=== PATIENT | male | born 1980 | race Caucasian/White ===

== ENCOUNTER 2019-07-09 08:40 | Emergency (ER) | payer SELFPAY ==
[2019-07-09 08:44] VITALS: BMI 32.1
[2019-07-09 09:00] VITALS: PULSE 70; RESP 16; O2SAT 99
--- NOTE | 2019-07-09 09:01 | W.ED.CHESTPA ---
HPI - Chest Pain General: Chief Complaint: Chest Pain Stated Complaint: cp Time Seen by Provider: 07/09/19 08:53 History of Present Illness: HPI narrative: 38-year-old male presents to the emergency room with complaint of chest pain he states he has had this off and on for the last 6 months to varying degrees is a little worse this morning. 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 He reported some nausea with it this morning as well as some shortness of breath. Over the last 6 months he is noticed that massaging or palpating the chest seems to relieve it as does rest and is exacerbated by activity such as lifting and working. He denies any fever sweats or chills any cough usually is not been short of breath with this with the exception of today's episode. Denies any nausea vomiting or diarrhea the rest of his review of systems is negative. He is not been around anyone who is been ill recently that he is aware of. He is not taken any antacids or PPIs or H2 blockers at home for this. He did get some aspirin at one point and he states he took someone else's hydrocodone tablet yesterday. MD complaint: chest pain Onset (ago): month(s) (6) Timing of current episode: episodic Prior episodes: Yes Onset: during exertion Pain location: left chest Pain radiation: none Severity: mild Quality: sharp Relieving factors: rest and other (Palpation) Exacerbating factors: exertion and movement Associated symptoms: Reports diaphoresis (This morning's episode only) and dyspnea (This morning's episode only); Deny fever(s), leg edema, nausea, palpitations, syncope or vomiting Treatment prior to arrival: aspirin Review of Systems Const: Reports: diaphoresis (This morning's episode only); Denies: fever(s) ENMT: Denies: throat pain, ear or mastoid pain, nasal discharge or nasal congestion Card: Denies: palpitations or syncope Resp: Reports: dyspnea (This morning's episode only) GI: Denies: nausea or vomiting : Denies: flank pain, dysuria, urinary frequency or urinary urgency Skin/Breast: Denies: rash or pruritus PFSH ED PFSH: Social History Smoking and tobacco status: current every day smoker Physical Exam Const: COMMON NORMALS: no acute distress GENERAL APPEARANCE: cooperative and comfortable ORIENTATION/CONSCIOUSNESS: Yes awake, Yes oriented to person, Yes oriented to place and Yes oriented to time HENMT: COMMON NORMALS: normocephalic, atraumatic, hearing grossly normal bilaterally, external ears normal, EAC's normal, TM's normal bilaterally, Normal nasal mucous membranes and turbinates present, moist oral mucous membranes and oropharynx normal HEAD & SCALP: normocephalic and atraumatic NOSE: Normal nasal mucous membranes and turbinates present EXTERNAL EAR: Yes external ears normal EXTERNAL AUDITORY CANAL: EAC's normal TYMPANIC MEMBRANE: TM's normal bilaterally Eye: COMMON NORMALS: Equal, round and reactive pupils present, EOMs intact bilaterally, conjunctivae normal and no scleral icterus CONJUNCTIVA: Yes conjunctivae normal PUPIL: Yes Equal, round and reactive pupils present Neck/C-Spine: COMMON NORMALS: full ROM, no lymphadenopathy, supple and no JVD Lymph: LYMPHATIC: no lymphadenopathy noted and no lymphedema noted Resp: COMMON NORMALS: normal respiratory effort, No retractions, No use of accessory muscles and clear to auscultation bilaterally AUSCULTATION: clear to auscultation bilaterally Cardio: COMMON NORMALS: no JVD, regular rate, regular rhythm and No murmurs present (Cardio) RATE: regular rate RHYTHM: regular rhythm GI: COMMON NORMALS: Soft to palpation and No hepatosplenomegaly present AUSCULTATION: Yes normoactive bowel sounds PALPATION: Yes Soft to palpation, No Tenderness to palpation present (GI), No Guarding due to palpation present (GI) and Yes No hepatosplenomegaly present Extremity: COMMON NORMALS: normal to inspection, capillary refill normal, no clubbing, cyanosis or edema, no calf tenderness and no pedal edema Neuro: SENSORIUM/ORIENTATION: Yes oriented to person, Yes oriented to place and Yes oriented to time Skin: COMMON NORMALS: no rashes or lesions noted GENERAL SKIN EXAM: no rashes or lesions noted Course Vital Signs: Vital signs: Vital Signs Pulse Rate 62 07/09/19 11:35 Respiratory Rate 16 07/09/19 11:35 Blood Pressure 127/75 07/09/19 11:35 Pulse Oximetry 99 07/09/19 11:35 MDM - Chest Pain MDM Narrative: Medical decision making narrative: Patient's troponin is negative EKG is unremarkable we will go ahead and discharge him. set him up to get a graded exercise test as an outpatient additionally start him on omeprazole 20 mg daily Lab Data: Labs: Lab Results 07/09/19 07/09/19 07/09/19 Range/Units 08:58 08:58 08:58 WBC 8.6 (4.0-10.0) 10^3/ uL RBC 4.61 (4.1-5.3) 10^6/u L Hgb 14.2 (11.7-16.6) g/dL Hct 42.6 (42.0-52.0) % MCV 92.4 (80-94) fL MCH 30.8 (28.0-34.0) pg MCHC 33.3 (30.0-36.0) g/dL RDW 12.3 (12.1-15.1) % Plt Count 209 (130-400) 10^3/c mm MPV 9.2 (7.4-10.4) fL Neut % (Auto) 73.0 % Lymph % (Auto) 17.1 % [place] % (Auto) 7.9 % Eos % (Auto) 1.2 % Baso % (Auto) 0.4 % Neut # (Auto) 6.3 (1.8-7.7) 10^3/u L Lymph # (Auto) 1.5 (0.8-4.8) 10^3/u L [place] # (Auto) 0.7 (0.2-0.9) 10^3/u L Eos # (Auto) 0.1 (0.0-0.8) 10^3/u L Baso # (Auto) 0.0 (0.0-0.1) 10^3/u L Nucleated RBC % (a uto) 0 % Nucleated RBCs # 0.0 /100WBC Sodium 136 (136-145) mmol/L Potassium 4.0 (3.5-5.1) mmol/L Chloride 100 (98-107) mmol/L Carbon Dioxide 27 (22-29) mmol/L Anion Gap 13.0 (5-19) BUN 14 (6-20) mg/dL Creatinine 0.7 (0.7-1.2) mg/dL GFR Calculation 126.9 (90-130) mL/min Glucose 93 (65-115) mg/dL Calculated Osmolal ity 278 L (285-295) mOsm/k g Calcium 9.7 (8.5-10.5) mg/dL Total Bilirubin 0.6 (0.15-1.2) mg/dL AST 67 H (0-40) U/L ALT 104 H (0-41) U/L Alkaline Phosphata se 57 (40-130) IU/L Creatine Kinase 129 (39-308) U/L Troponin T Baselin e 6 (0-15) ng/mL Troponin T 120 Min [place] (0-15) ng/mL Delta Troponin T (0-10) ABS# Total Protein 7.9 (6.6-8.7) g/dL Albumin 4.2 (3.5-5.2) g/dL Globulin 3.7 (1.3-4.6) g/dL 07/09/19 Range/Units 10:57 WBC (4.0-10.0) 10^3/ uL RBC (4.1-5.3) 10^6/u L Hgb (11.7-16.6) g/dL Hct (42.0-52.0) % MCV (80-94) fL MCH (28.0-34.0) pg MCHC (30.0-36.0) g/dL RDW (12.1-15.1) % Plt Count (130-400) 10^3/c mm MPV (7.4-10.4) fL Neut % (Auto) % Lymph % (Auto) % [place] % (Auto) % Eos % (Auto) % Baso % (Auto) % Neut # (Auto) (1.8-7.7) 10^3/u L Lymph # (Auto) (0.8-4.8) 10^3/u L [place] # (Auto) (0.2-0.9) 10^3/u L Eos # (Auto) (0.0-0.8) 10^3/u L Baso # (Auto) (0.0-0.1) 10^3/u L Nucleated RBC % (a uto) % Nucleated RBCs # /100WBC Sodium (136-145) mmol/L Potassium (3.5-5.1) mmol/L Chloride (98-107) mmol/L Carbon Dioxide (22-29) mmol/L Anion Gap (5-19) BUN (6-20) mg/dL Creatinine (0.7-1.2) mg/dL GFR Calculation (90-130) mL/min Glucose (65-115) mg/dL Calculated Osmolal ity (285-295) mOsm/k g Calcium (8.5-10.5) mg/dL Total Bilirubin (0.15-1.2) mg/dL AST (0-40) U/L ALT (0-41) U/L Alkaline Phosphata se (40-130) IU/L Creatine Kinase (39-308) U/L Troponin T Baselin e (0-15) ng/mL Troponin T 120 Min [place] 6.00 (0-15) ng/mL Delta Troponin T 0 (0-10) ABS# Total Protein (6.6-8.7) g/dL Albumin (3.5-5.2) g/dL Globulin (1.3-4.6) g/dL Discharge Plan Discharge Patient Disposition: Home, Self-Care Clinical Impression: Atypical chest pain Condition: Stable Prescriptions: New omeprazole 20 mg capsule,delayed release(DR/EC) 20 mg PO DAILY 56 Days RF: 0 Discharge Orders: Discharge Order (Routine); Ordered 07/09/19 Ordered By: Darshan Alston Discharge Diet: Advance as tolerated Discharge Activity: Increase activity as tolerated Activity Restrictions/Additional Instructions: Case management will call with an appointment for an exercise stress test Discharge Date/Time: 07/09/19 11:35 Coding Level of Care Code ED Financial Systems Manager for Javier Fwd Exam Comprehensive
--- NOTE | 2019-07-09 09:04 | ECG_ITS ---
Measurements Intervals [place] Rate: 67 P: 66 NC: 162 QRS: 67 QRSD: 85 T: 60 QT: 382 QTc: 404 SINUS RHYTHM No previous ECG available for comparison Electronically Signed On 07-10-2019 18:14:09 CDT by Juanis Stiles M.D. [email or web address]
--- NOTE | 2019-07-09 09:04 | XR_ITS ---
WS: [id number] CHEST XRAY TECHNIQUE: Portable chest. CLINICAL INFORMATION: chest pain COMPARISON: None. FINDINGS: Heart: Normal cardiac silhouette. Lungs: Lungs are clear. No consolidation or pleural effusion. A few Calcified granulomas. Bones: Normal visualized bony structures. XR/XR chest 1V portable [id number] IMPRESSION: No acute chest findings
[2019-07-09 09:13] LABS: Basophils % 0.4 %; Eosinophils # 0.1 10^3/uL (0.0-0.8); Eosinophils % 1.2 %; Hematocrit 42.6 % (42.0-52.0); Hemoglobin 14.2 g/dL (11.7-16.6); Lymphocytes # 1.5 10^3/uL (0.8-4.8); Lymphocytes % 17.1 %; Mean Corpuscular HGB Conc 33.3 g/dL (30.0-36.0); Mean Corpuscular Hemoglobin 30.8 pg (28.0-34.0); Mean Corpuscular Volume 92.4 fL (80-94); Mean Platelet Volume 9.2 fL (7.4-10.4); Monocytes # 0.7 10^3/uL (0.2-0.9); Monocytes % 7.9 %; Neutrophils # 6.3 10^3/uL (1.8-7.7); Nucleated Red Blood Cells % 0 %; Platelet Count 209 10^3/cmm (130-400); Red Blood Count 4.61 10^6/uL (4.1-5.3); Red Cell Distribution Width 12.3 % (12.1-15.1); White Blood Count 8.6 10^3/uL (4.0-10.0)
[2019-07-09 09:29] LABS: Alanine Aminotransferase 104 U/L (0-41); Albumin Level 4.2 g/dL (3.5-5.2); Alkaline Phosphatase 57 IU/L (40-130); Aspartate Amino Transferase 67 U/L (0-40); Blood Urea Nitrogen 14 mg/dL (6-20); Calcium 9.7 mg/dL (8.5-10.5); Carbon Dioxide 27 mmol/L (22-29); Chloride 100 mmol/L (98-107); Creatine Phosphokinase 129 U/L (39-308); Globulin 3.7 g/dL (1.3-4.6); Glomerular Filtration Rate 126.9 mL/min (90-130); Glucose 93 mg/dL (65-115); Osmolality Calculated 278 mOsm/kg (285-295); Sodium 136 mmol/L (136-145); Total Bilirubin 0.6 mg/dL (0.15-1.2); Total Protein 7.9 g/dL (6.6-8.7)
[2019-07-09 09:32] LABS: Troponin(5th) Baseline 6 ng/mL (0-15)
[2019-07-09 09:54] VITALS: BP 127/91; PULSE 69; RESP 16; O2SAT 98
--- NOTE | 2019-07-09 11:04 | ECG_ITS ---
Measurements Intervals [place] Rate: 57 P: 67 MS: 168 QRS: 67 QRSD: 83 T: 68 QT: 406 QTc: 397 SINUS BRADYCARDIA No previous ECG available for comparison Electronically Signed On 07-10-2019 18:41:58 CDT by Juanis Stiles M.D. [email or web address]
--- NOTE | 2019-07-09 11:13 | PC.NURSE ---
EKG done at 1110 and shown to ER doctor
[2019-07-09 11:25] LABS: Troponin 5 2HR Delta 0 ABS# (0-10)
[2019-07-09 11:35] VITALS: BP 127/75; PULSE 62; RESP 16; O2SAT 99
== END 2019-07-09 11:35 | disposition home or self-care (01) ==
PROVIDERS: Emergency Provider Family Medicine
DX: R07.89 Other chest pain (principal); F17.210 Nicotine dependence, cigarettes, uncomplicated
CPT/HCPCS: 12345; 36415; 71045; 80053; 82550; 84484; 85025; 93005; 99283; 99284

== ENCOUNTER 2020-02-29 15:58 | Outpatient (CLI) | payer SELFPAY ==
--- NOTE | 2020-02-29 16:04 | MR_ITS ---
WS: [id number] MRI LEFT KNEE NONCONTRAST TECHNIQUE: Axial PD, coronal PD fat sat, coronal PD, sagittal PD, and sagittal PD fat-sat images obta ined. CLINICAL INFORMATION: pain in left knee COMPARISON: None. FINDINGS: Distal quadriceps and patella tendons are intact. Prepatellar and infrapatellar patellar soft tissue edema. Normal ACL and PCL. Normal medial and lateral meniscus. No acute appearing meniscal tears. Sma ll amount of edema in the medial femoral condyle likely due to contusion. Medial and lateral collateral ligaments are normal. Mild chondromalacia patella. Normal medial and la teral patellar retinaculum. Normal popliteal fossa. MR/MR knee LT wo con* [id number] IMPRESSION: 1. Normal anterior and posterior cruciate ligaments. 2. Mild chronic thinning of the medial and lateral meniscus. No acute appearin g meniscal tears. 3. Prepatellar and infrapatellar soft tissue edema likely due to recent contus ion. 4. Tiny amount of edema involving the medial femoral condyle likely contusion. 5. Mild chondromalacia patella. 6. Medial and lateral collateral ligaments are intact.
== END 2020-02-29 15:59 | disposition home or self-care (01) ==
LOC: RADSHAW 16:01
PROVIDERS: Visit Provider Nurse Practitioner Family
DX: M22.42 Chondromalacia patellae, left knee (principal); R60.0 Localized edema
CPT/HCPCS: 73721